=== PATIENT | male | born 1975 | race Caucasian/White ===

== ENCOUNTER 2023-09-16 11:09 | Day surgery (SDC) | payer BC ==
[~2023-09-16] VITALS: Ht 170.2 cm; Wt 95.0 kg
[2023-09-16] MEDS ORDERED: MULTI VITAMINS1 TAB PO (11:31)
[2023-09-16 11:47] VITALS: BP 133/92; PULSE 83; TEMP 98.1
[2023-09-16 13:40] VITALS: BP 112/88; PULSE 80; TEMP 98
[2023-09-16 13:55] VITALS: BP 119/89; PULSE 76
[2023-09-16 14:05] VITALS: BP 140/90; PULSE 76
--- NOTE | 2023-09-16 14:25 | NUR ---
1340 RETURNS TO ROOM 4 PER CART. AWAKE, ALERT. RESP UNLABORED. AMBULATES TO RECLINER WITH STANDBY ASSIST. DENIES NAUSEA OR ABD PAIN. VITAL SIGNS OBTAINED. CALL LIGHT AT SIDE. IN ROOM 1350 TOLERATES PO JUICE WITHOUT NAUSEA. DISCHARGE INSTRUCTIONS REVIEWED. PATIENT VERBALIZES UNDERSTANDING. COPY PROVIDED IN DISCHARGE FOLDER. 1400 DRESSES SELF. SITS IN RECLINER AWAITING PRIOR TO DISCHARGE 1420 DR. WOOD HERE TO VISIT WITH PATIENT
== END 2023-09-16 14:28 | disposition home or self-care (01) ==
LOC: SDCO 11:09
DX: Z12.11 Encounter for screening for malignant neoplasm of colon (principal); D12.8 Benign neoplasm of rectum; K57.30 Diverticulosis of large intestine without perforation or abscess without bleeding
CPT/HCPCS: J2704; J7120